=== PATIENT | female | born 1965 ===

== ENCOUNTER 2016-12-31 19:48 | Emergency (ER) | payer OTHER, MEDICARE ==
[2016-12-31 19:48] VITALS: BMI 35.0
[2016-12-31 20:06] VITALS: RESP 18
--- NOTE | 2016-12-31 20:56 | C.PDOC ---
History Of Present Illness The patient, a 51y/o female whose PMHx includes bilateral hip replacement, presents to the ED accompanied by family members for evaluation of right buttock , right ankle, and left hand pain which began after she sustained a fall around 2 hours prior to arrival. As per family member, patient was walking on the sidewalk when she stumbled on a road crack and fell down on her right side. Patient was then brought to the ED in a cab and with the assistance of her family members. Patient denies head injury, LOC, neck pain, back pain, upper/ lower extremity numbness/weakness. Time Seen by Provider: 12/31/16 20:20 Chief Complaint (Nursing): Lower Extremity Problem/Injury History Per: Patient, Family History/Exam Limitations: no limitations Onset/Duration Of Symptoms: Hrs (2) Current Symptoms Are (Timing): Still Present Additional History Per: Patient, Family - Hip Description Of Injury: Fell, Tripped - Ankle/Foot Description Of Injury: Fell Past Medical History Reviewed: Historical Data, Nursing Documentation, Vital Signs Vital Signs: Last Vital Signs Temp 98.3 F 12/31/16 22:22 Pulse 74 12/31/16 22:22 Resp 18 12/31/16 22:22 BP 110/73 12/31/16 22:22 Pulse Ox 95 12/31/16 22:22 - Medical History PMH: Anxiety, Arthritis, Bipolar Disorder, Depression, Deep Vein Thrombosis, HTN , Hypercholesterolemia, Hyperlipidemia, Chronic Kidney Disease, Schizophrenia Denies: Colonic Polyps, Osteoporosis Surgical History: Endoscopy Family History: States: Other (nc) - Social History Hx Tobacco Use: No Hx Alcohol Use: No Hx Substance Use: No - Immunization History Hx Tetanus Toxoid Vaccination: Yes (2013) Hx Influenza Vaccination: Yes Hx Pneumococcal Vaccination: Yes Review Of Systems Constitutional: Negative for: Fever, Chills Cardiovascular: Negative for: Chest Pain, Palpitations Respiratory: Negative for: Cough, Shortness of Breath Gastrointestinal: Negative for: Nausea, Vomiting, Abdominal Pain, Diarrhea Musculoskeletal: Negative for: Neck Pain, Back Pain Neurological: Negative for: Weakness, Numbness, Headache Physical Exam - Physical Exam Appears: Non-toxic, No Acute Distress Skin: Warm, Dry, Ecchymosis (to left palm with localized tenderness ), Other (+ superficial abrasion to left anterior knee ) Head: Atraumatic, Normacephalic Eye(s): bilateral: Normal Inspection, EOMI Oral Mucosa: Moist Neck: Normal ROM, No Midline Cervical Tenderness, Supple Chest: Symmetrical, No Deformity, No Tenderness Cardiovascular: Rhythm Regular, No Murmur Respiratory: Normal Breath Sounds, No Rales, No Rhonchi, No Wheezing Back: Normal Inspection, No Vertebral Tenderness, No Paraspinal Tenderness Extremity: Normal ROM (left thumb, b/l wrists, hips, ankles and knees), Tenderness (to right lateral malleolus r ankle, right buttock region. no ttp of lateral hips or pelvis.), Capillary Refill (less than 2 seconds), Swelling (to right lateral malleolus r ankle ), Other (left wrist nontender to palpation and nl rom) Pulses: Left Radial: Normal, Right Radial: Normal, Left Dorsalis Pedis: Normal, Right Dorsalis Pedis: Normal Neurological/Psych: Oriented x3, Normal Speech, Normal Cognition Gait: Unable To Assess ED Course And Treatment O2 Sat by Pulse Oximetry: 98 (on RA) Pulse Ox Interpretation: Normal Progress Note: Left knee XR, Right ankle XR, Left hand XR, and Hip XR ordered and reviewed. Patient received Morphine IV. Medical Decision Making Medical Decision Making: XR r hip ap pelvis- no acute fracture XR right ankle- no acute fracture XR left hand- no acute fracture XR left knee- no acute fracture KARY wrap RICE NSAIDs pcp follow up The patient initially requested intravenous pain medication. After receiving morphine she then requested dilaudid. According to the [place] [employer] she received chronic rx of narcotics and just filled 2 rx totalling 240 oxycodone just 4 days ago on 12/27/16, and she is requesting a rx for more percocet today. Pt made aware of narcotic policy. Disposition - Disposition Referrals: Refugio Macedo Jr., MD [Medical Doctor] - Disposition: HOME/ ROUTINE Disposition Time: 22:05 Condition: STABLE Additional Instructions: Please follow up with your doctor. Return to the ER for any worsening symptoms or for any other concerns. Prescriptions: Naproxen 500 mg PO Q12H PRN #10 ect PRN Reason: Pain, Moderate (4-7) Instructions: Ankle Sprain (ED), Contusion in Adults (ED) Forms: General Discharge Instructions - Clinical Impression Clinical Impression: Ankle sprain, Contusion of buttock, Knee contusion, Hand contusion, Drug- seeking behavior - Scribe Statement The provider has reviewed the documentation as recorded by the Scribe (Reyna Hernandez) Provider Attestation: All medical record entries made by the Scribe were at my direction and personally dictated by me. I have reviewed the chart and agree that the record accurately reflects my personal performance of the history, physical exam, medical decision making, and the department course for this patient. I have also personally directed, reviewed, and agree with the discharge instructions and disposition.
[2016-12-31] MEDS ORDERED: Morphine 4 MG/ML VIAL ONE (21:07)
[2016-12-31 22:22] VITALS: BP 110/73; PULSE 74; TEMP 98.3
--- NOTE | 2017-01-01 12:34 | RAD ---
PROCEDURE: Left Hand Radiographs. HISTORY: fall hand pain COMPARISON: None. FINDINGS: BONES: Normal. No fracture. 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 Remaining joint spaces and articular surfaces are preserved. SOFT TISSUES: Normal. OTHER FINDINGS: None. IMPRESSION: No acute fracture. Osteoarthritis of DIP 5
--- NOTE | 2017-01-01 12:35 | RAD ---
PROCEDURE: Right Hip Radiographs. HISTORY: fall pain COMPARISON: None. FINDINGS: BONES: No evidence of osseous fracture. Status post bilateral total hip replacement. No evidence of prosthesis loosening. JOINTS: No dislocation. SOFT TISSUES: Normal. OTHER FINDINGS: Intrauterine device noted. IMPRESSION: No acute fracture. Bilateral total hip replacement.
--- NOTE | 2017-01-01 12:35 | RAD ---
PROCEDURE: Left Knee Radiographs. HISTORY: Pain. COMPARISON: None. FINDINGS: BONES: Normal. No fracture. JOINTS: Normal. No osteoarthritis. JOINT EFFUSION: None. OTHER FINDINGS: None. IMPRESSION: Normal radiographs of the left knee.
--- NOTE | 2017-01-01 12:36 | RAD ---
PROCEDURE: Right Ankle Radiographs. HISTORY: fall ankle pain COMPARISON: None FINDINGS: BONES: Normal. No fracture. JOINTS: Normal. No osteoarthritis. Ankle mortise maintained. Talar dome intact SOFT TISSUES: Normal. OTHER FINDINGS: None. IMPRESSION: Normal right ankle radiographs.
[2017-01-01 14:20] VITALS: O2SAT 98
== END 2016-12-31 22:45 | disposition home or self-care (01) ==
LOC: C.ER 19:48
DX: S93.401A Sprain of unspecified ligament of right ankle, initial encounter (principal); S30.0XXA Contusion of lower back and pelvis, initial encounter; S80.02XA Contusion of left knee, initial encounter; S60.222A Contusion of left hand, initial encounter; W01.0XXA Fall on same level from slipping, tripping and stumbling without subsequent striking against object, initial encounter; Y93.01 Activity, walking, marching and hiking; Y92.480 Sidewalk as the place of occurrence of the external cause; Z76.5 Malingerer [conscious simulation]
CPT/HCPCS: 73130; 73502; 73562; 73610; 96374; 99284; J2270

== ENCOUNTER 2017-02-12 03:31 | Emergency (ER) | payer MEDICARE ==
[2017-02-12 03:31] VITALS: BMI 35.0
--- NOTE | 2017-02-12 05:28 | C.PDOC ---
History Of Present Illness 51 y/o female presents to ER with c/o of palpitations and SOB and lightheadedness started after argument with her daughter. Pt states her symptoms are similar to pas anxiety attacks. Pt is on meds for anxiety but unsure of name. Pt denies chest pain, weakness, no SOB at this time. Reports that symptoms have improved but still feels very anxious. Time Seen by Provider: 02/12/17 03:46 Chief Complaint (Nursing): Palpitations Past Medical History Vital Signs: Last Vital Signs Temp 98.4 F 02/12/17 03:40 Pulse 93 H 02/12/17 03:40 Resp 16 02/12/17 03:40 BP 124/69 02/12/17 03:40 Pulse Ox 96 02/12/17 05:35 - Medical History PMH: Anxiety, Arthritis, Bipolar Disorder, Depression, Deep Vein Thrombosis, HTN , Hypercholesterolemia, Hyperlipidemia, Chronic Kidney Disease, Schizophrenia Denies: Colonic Polyps, Osteoporosis Surgical History: Endoscopy Family History: States: Unknown Family Hx - Social History Hx Tobacco Use: No Hx Alcohol Use: Yes Hx Substance Use: No - Immunization History Hx Tetanus Toxoid Vaccination: No (2013) Hx Influenza Vaccination: No Hx Pneumococcal Vaccination: No ED Course And Treatment ECG Rhythm: Sinus Rhythm (normal at 89, no ST-T abnormalities) ECG Interpretation: No Acute Changes O2 Sat by Pulse Oximetry: 96 Pulse Ox Interpretation: Normal Progress Note: Pt symptoms have completely resolved after PO ativan, appears well, no longer anxious, VSS. Pt understands to return if chest pain, SOB, dizziness, diaphoresis occur Reevaluation Time: 05:35 Reassessment Condition: Improved Disposition Counseled Patient/Family Regarding: Diagnosis, Need For Followup, Rx Given - Disposition Disposition: HOME/ ROUTINE Disposition Time: 05:29 Condition: STABLE Additional Instructions: Continue current meds Follow up with your doctor Return to ER if worse Instructions: Anxiety (ED) - Clinical Impression Clinical Impression: Anxiety
[2017-02-12 05:59] VITALS: BP 118/77; PULSE 88; RESP 20; TEMP 98; O2SAT 99
--- NOTE | 2017-02-17 13:16 | CARD ---
APPROVED REPORT EKG Measurement Heart [id number] <Conclusion> Normal sinus rhythm Minimal voltage criteria for LVH, may be normal variant Possible Inferior infarct, age undetermined Abnormal ECG
== END 2017-02-12 05:58 | disposition home or self-care (01) ==
LOC: C.ER 03:31
DX: F41.9 Anxiety disorder, unspecified (principal)

== ENCOUNTER 2017-11-16 11:16 | Emergency (ER) | payer MEDICAID, MEDICARE ==
[2017-11-16 11:16] VITALS: BMI 35.0
[2017-11-16 12:54] LABS: BASO # 0.1 K/uL (0.0-0.2); BASO % 0.5 % (0.0-2.0); EOS # 0.3 K/uL (0.0-0.7); EOS % 2.3 % (0.0-4.0); LYMPH # 3.3 K/uL (1.0-4.3); LYMPH % 22.1 % (20.0-40.0); MEAN CORPUSCULAR HEMOGLOBIN 32.3 pg (27.0-31.0); MEAN CORPUSCULAR HGB CONC 34.5 g/dL (33.0-37.0); MEAN PLATELET VOLUME 7.2 fL (7.2-11.7); MONO # 0.6 K/uL (0.0-0.8); NEUT # 10.5 K/uL (1.8-7.0); NEUT % 71.1 % (50.0-75.0); RBC 3.78 Mil/uL (3.80-5.20); RED CELL DISTRIBUTION WIDTH 15.4 % (11.5-14.5); WHITE BLOOD COUNT 14.8 K/uL (4.8-10.8)
[2017-11-16 12:57] LABS: HEMOGLOBIN 12.2 g/dL (11.0-16.0); MEAN CELL VOLUME 93.6 fL (81.0-99.0)
[2017-11-16 13:06] LABS: ALB/GLOB RATIO 1.2 (1.0-2.1); ALBUMIN 4.2 g/dL (3.5-5.0); ALT/SGPT 25 U/L (9-52); AST/SGOT 25 U/L (14-36); BLOOD UREA NITROGEN 22 mg/dL (7-17); CALCIUM 9.4 mg/dl (8.6-10.4); GFR AFRICAN-AMERICAN > 60; GFR NON-AFRICAN AMERICAN 58
--- NOTE | 2017-11-16 14:04 | RAD ---
HISTORY: chest pain COMPARISON: Chest x-ray performed 08/02/13 TECHNIQUE: Chest, one view. FINDINGS: Examination limited by habitus. LUNGS: No focal consolidation. Re-identified 4 mm right upper lobe nodular density. Please note that chest x-ray has limited sensitivity for the detection of pulmonary masses. PLEURA: No significant pleural effusion identified. No definite pneumothorax . CARDIOVASCULAR: For size appears borderline enlarged. OSSEOUS STRUCTURES: No acute osseous abnormality identified. VISUALIZED UPPER ABDOMEN: Unremarkable. OTHER FINDINGS: None. IMPRESSION: Borderline cardiomegaly. . 4 mm right upper lobe nodular density re-identified consistent with calcified granuloma.
[2017-11-16 14:16] VITALS: BP 112/69; PULSE 64; RESP 18; TEMP 97.4; O2SAT 97
--- NOTE | 2017-11-16 17:33 | C.PDOC ---
History Of Present Illness 52 year old female presents to the ED for evaluation after experiencing palpitations which lasted from around 1.5-2 minutes earlier today. Patient also reports a nosebleed which lasted 5 minutes, in which she spit some blood out of her mouth. She denies fever, chills, chest pain, cough, and shortness of breath. Chief Complaint (Nursing): Palpitations History Per: Patient History/Exam Limitations: no limitations Onset/Duration Of Symptoms: Mins Current Symptoms Are (Timing): Better Additional History Per: Patient Past Medical History Reviewed: Historical Data, Nursing Documentation, Vital Signs Vital Signs: Last Vital Signs Temp 97.4 F L 11/16/17 14:05 Pulse 64 11/16/17 14:05 Resp 18 11/16/17 14:05 BP 112/69 11/16/17 14:05 Pulse Ox 97 11/16/17 17:36 - Medical History PMH: Anxiety, Arthritis, Bipolar Disorder, Depression, Deep Vein Thrombosis, HTN , Hypercholesterolemia, Hyperlipidemia, Schizophrenia Denies: Colonic Polyps, Diabetes, Hepatitis, HIV, Osteoporosis, Chronic Kidney Disease, Seizures, Sexually Transmitted Disease Surgical History: Endoscopy - [facility] Procedures GROUP PSYCHOTHERAPY (10/26/17) INDIVIDUAL PSYCHOTHERAPY, BEHAVIORAL (10/26/17) INDIVIDUAL PSYCHOTHERAPY, COGNITIVE-BEHAVIORAL (09/02/17) Family History: States: Unknown Family Hx - Social History Hx Tobacco Use: No Hx Alcohol Use: Yes Hx Substance Use: No - Immunization History Hx Tetanus Toxoid Vaccination: Yes (2013) Hx Influenza Vaccination: Yes Hx Pneumococcal Vaccination: Yes Review Of Systems Constitutional: Negative for: Fever, Chills ENT: Positive for: Nose Discharge Cardiovascular: Positive for: Palpitations. Negative for: Chest Pain Respiratory: Negative for: Shortness of Breath Physical Exam - Physical Exam Appears: Non-toxic, No Acute Distress Skin: Normal Color, Warm, Dry Head: Atraumatic, Normacephalic Eye(s): bilateral: Normal Inspection Ear(s): Bilateral: Normal Nose: Other (dry blood noted in left nare. no active bleeding ) Neck: Supple Chest: Symmetrical, No Deformity, No Tenderness Cardiovascular: Rhythm Regular, No Murmur Respiratory: Normal Breath Sounds, No Rales, No Rhonchi, No Wheezing Extremity: Normal ROM, Capillary Refill (less than 2 seconds ) Neurological/Psych: Oriented x3, Normal Speech, Normal Cognition Gait: Steady ED Course And Treatment - Laboratory Results Result Diagrams: 11/16/17 12:45 11/16/17 12:45 ECG: Interpreted By Me, Viewed By Me ECG Rhythm: Sinus Rhythm Rate From EC O2 Sat by Pulse Oximetry: 97 (on RA) Pulse Ox Interpretation: Normal - Other Rad CXR X-Ray: Interpreted by Me, Viewed By Me, Read By Radiologist Interpretation: HISTORY: chest pain. COMPARISON: Chest x-ray performed . TECHNIQUE: Chest, one view. FINDINGS: Examination limited by habitus. LUNGS: No focal consolidation. Re-identified 4 mm right upper lobe nodular density. Please note that chest x-ray has limited sensitivity for the detection of pulmonary masses. PLEURA: No significant pleural effusion identified. No definite pneumothorax . CARDIOVASCULAR: For size appears borderline enlarged. OSSEOUS STRUCTURES: No acute osseous abnormality identified. VISUALIZED UPPER ABDOMEN: Unremarkable. OTHER FINDINGS: None. IMPRESSION: Borderline cardiomegaly. . 4 mm right upper lobe nodular density re-identified consistent with calcified granuloma. Medical Decision Making Medical Decision Making: Progress: Bloodwork, CXR and EKG ordered and reviewed. Disposition - Disposition Referrals: [employer] Sherly Martinez, [Non-Staff] - Disposition: HOME/ ROUTINE Disposition Time: 13:40 Condition: GOOD Additional Instructions: Thank you for letting us take care of you today. The emergency medical care you received today was directed at your acute symptoms. If you were prescribed any medication, please fill it and take as directed. It may take several days for your symptoms to resolve. Return to the Emergency Department if your symptoms worsen, do not improve, or if you have any other problems. Please contact your doctor or call one of the physicians/clinics you have been referred to that are listed on the Patient Visit Information form that is included in your discharge packet. Bring any paperwork you were given at discharge with you along with any medications you are taking to your follow up visit. Our treatment cannot replace ongoing medical care by a primary care provider (PCP) outside of the emergency department. Thank you for allowing the [facility] team to be part of your care today. Please follow up with your doctor in 2-3 days for re-evaluation and further management. Instructions: Palpitations (ED) Forms: [employer] (Danish) - Clinical Impression Clinical Impression: Palpitations - Scribe Statement The provider has reviewed the documentation as recorded by the Scribe (Reyna Hernandez) Provider Attestation: All medical record entries made by the Scribe were at my direction and personally dictated by me. I have reviewed the chart and agree that the record accurately reflects my personal performance of the history, physical exam, medical decision making, and the department course for this patient. I have also personally directed, reviewed, and agree with the discharge instructions and disposition.
--- NOTE | 2017-11-18 15:19 | CARD ---
APPROVED REPORT EKG Measurement Heart [id number] <Conclusion> Normal sinus rhythm Normal ECG
== END 2017-11-16 14:05 | disposition home or self-care (01) ==
LOC: C.ER 11:16
DX: R00.2 Palpitations (principal); E78.00 Pure hypercholesterolemia, unspecified; I10 Essential (primary) hypertension; F20.9 Schizophrenia, unspecified; Z86.718 Personal history of other venous thrombosis and embolism

== ENCOUNTER 2017-12-20 02:32 | Emergency (ER) | payer MEDICARE ==
[2017-12-20 02:32] VITALS: BMI 35.0
[2017-12-20 02:48] VITALS: RESP 20
[2017-12-20] MEDS ORDERED: Lidocaine 2% Inj (20ml) INFIL ONE (03:19)
--- NOTE | 2017-12-20 03:26 | C.PDOC ---
History Of Present Illness 52 year old female presents to the ED for evaluation of a headache after she slipped and fell in the shower. Patient states she took Tylenol/codeine for her shoulder pain and then felt light headed while in the shower, slipped and hit the back of head against the bathtub. Patient reports questionable LOC; currently c/o headache and a laceration the back of her head. Patient denies visual changes, nausea, vomit, back pain, weakness, numbness. Time Seen by Provider: 12/20/17 03:04 Chief Complaint (Nursing): Abnormal Skin Integrity History Per: Patient History/Exam Limitations: no limitations Onset/Duration Of Symptoms: Hrs Current Symptoms Are (Timing): Still Present Quality: "Pain" Preceeding Symptoms: None Recent travel outside of the [place]: No Additional History Per: Patient Past Medical History Reviewed: Historical Data, Nursing Documentation, Vital Signs Vital Signs: Last Vital Signs Temp 98.5 F 12/20/17 05:15 Pulse 84 12/20/17 05:15 Resp 20 12/20/17 05:15 BP 110/79 12/20/17 05:15 Pulse Ox 95 12/20/17 06:54 - Medical History PMH: Anxiety, Arthritis, Bipolar Disorder, Depression, Deep Vein Thrombosis, HTN , Hypercholesterolemia, Hyperlipidemia, Schizophrenia Denies: Colonic Polyps, Diabetes, Hepatitis, HIV, Osteoporosis, Chronic Kidney Disease, Seizures, Sexually Transmitted Disease Surgical History: Endoscopy - [facility] Procedures GROUP PSYCHOTHERAPY (10/26/17) INDIVIDUAL PSYCHOTHERAPY, BEHAVIORAL (10/26/17) INDIVIDUAL PSYCHOTHERAPY, COGNITIVE-BEHAVIORAL (09/02/17) Family History: States: Unknown Family Hx - Social History Hx Tobacco Use: No Hx Alcohol Use: Yes Hx Substance Use: No - Immunization History Hx Tetanus Toxoid Vaccination: Yes (2013) Hx Influenza Vaccination: Yes Hx Pneumococcal Vaccination: Yes Review Of Systems Constitutional: Negative for: Fever, Chills Eyes: Negative for: Vision Change ENT: Negative for: Ear Discharge, Nose Discharge Gastrointestinal: Negative for: Nausea, Vomiting Musculoskeletal: Negative for: Neck Pain Skin: Positive for: Other (laceration scalp). Negative for: Rash Neurological: Positive for: Headache, Dizziness. Negative for: Weakness, Numbness Physical Exam - Physical Exam Appears: Non-toxic, No Acute Distress Skin: Normal Color, Warm, Dry Head: Normacephalic, Laceration (3 cm to right sided occipital ), Other (No meyers signs) Eye(s): bilateral: Normal Inspection, PERRL, EOMI, Other (no racoon eyes) Ear(s): Bilateral: Normal, Other (no hemotympanum) Nose: No Discharge, No Epistaxis Oral Mucosa: Moist Neck: Normal ROM, No Midline Cervical Tenderness, Paracervical Tenderness (mild) , Supple Chest: No Deformity, No Tenderness Cardiovascular: Rhythm Regular, No Murmur Respiratory: No Decreased Breath Sounds Gastrointestinal/Abdominal: Soft, No Tenderness Extremity: Normal ROM, No Tenderness, No Swelling Neurological/Psych: Oriented x3, Normal Speech, Normal Cognition, Normal Motor, Normal Sensation Gait: Steady ED Course And Treatment O2 Sat by Pulse Oximetry: 95 (On RA) Pulse Ox Interpretation: Normal - CT Scan/US CT head Other Rad Studies (CT/US): Read By Radiologist, Radiology Report Reviewed CT/US Interpretation: FINDINGS: Brain: Mild atrophy. No intracranial hemorrhage. No mass. Few scattered foci of decreased. attenuation within periventricular/subcortical white matter. No edema. Ventricles: No hydrocephalus. Bones/joints: No acute fracture. Soft tissues: Mild right occipital parietal soft tissue swelling. Sinuses: No acute sinusitis. Mastoid air cells: No mastoid effusion. Orbits: Unremarkable as visualized. IMPRESSION : 1. No intracranial hemorrhage. 2. Nonspecific white matter changes. 3. Incidental/non-acute findings are described above. CT C-Spine Other Rad Studies (CT/US): Read By Radiologist, Radiology Report Reviewed CT/US Interpretation: FINDINGS: Vertebrae: No acute fracture. Chronic ununited fracture T1 spinous process. Straightening of. cervical spine. Discs/spinal canal/neural foramina: No significant spinal canal stenosis. Soft tissues: Unremarkable. Sinuses: Minimal mucosal thickening of maxillary sinuses. Lung apices: RUL calcified granuloma. IMPRESSION: 1. No acute fracture. 2. Incidental/non-acute findings are described above Laceration - Laceration Repair No standard instances Wound Length (In cm): 3 Description Of Wound: Linear Wound Cleansed With: Sterile Saline Anesthesia: Lidocaine 2% Wound Examination: Irrigated With Saline, No FB With Wound Exploration, No Tendon Injury With Wound Exploration Wound Closure: [place] (#7) Wound Complexity: Simple Medical Decision Making Medical Decision Making: Plan: * CT head * CT Cervical Spine ct head and cervical spine neg for acute pathology. scalp laceraiton stapled. pt tolerated procedure well. f/u pmd. Disposition Counseled Patient/Family Regarding: Diagnosis, Need For Followup - Disposition Referrals: Refugio Macedo Jr., MD [Medical Doctor] - Disposition: HOME/ ROUTINE Disposition Time: 04:59 Condition: IMPROVED Additional Instructions: Please do not soak head in water; a brief rinse ok for the next few days. Follow up with Dr Macedo. Staple removal in 10-14 days. Return to ER for any severe headache, vomiting, dizziness, nausea, seizure or any unusual behavior. . Instructions: Laceration Repair With [place] (DC), Head Injury Observation (DC) Forms: [employer] (Filipino), General Discharge Instructions - Clinical Impression Clinical Impression: Fall in (into) shower or empty bathtub, initial encounter, Head injury, acute, Occipital scalp laceration - PA / RECRUITING ASSOCIATE / Resident Statement MD/DO has reviewed & agrees with the documentation as recorded. - Scribe Statement The provider has reviewed the documentation as recorded by the Scribe Lonnie Man All medical record entries made by the Scribe were at my direction and personally dictated by me. I have reviewed the chart and agree that the record accurately reflects my personal performance of the history, physical exam, medical decision making, and the department course for this patient. I have also personally directed, reviewed, and agree with the discharge instructions and disposition.
[2017-12-20] MEDS ORDERED: Lidocaine 2% Inj (20ml) ONE (03:30)
--- NOTE | 2017-12-20 04:02 | CT ---
EXAM: CT Head Without Intravenous Contrast CLINICAL HISTORY: 52 years old, female; Injury or trauma; Fall; Initial encounter; Blunt trauma (contusions or hematomas); With loss of consciousness; Not specified; Additional info: Slipped hit head, ? loc TECHNIQUE: Axial computed tomography images of the head/brain without intravenous contrast. All CT scans at this facility use one or more dose reduction techniques, viz.: automated exposure control; ma/kV adjustment per patient size (including targeted exams where dose is matched to indication; i.e. head); or iterative reconstruction technique. Coronal and sagittal reformatted images were created and reviewed. COMPARISON: No relevant prior studies available. FINDINGS: Brain: Mild atrophy. No intracranial hemorrhage. No mass. Few scattered foci of decreased attenuation within periventricular/subcortical white matter. No edema. Ventricles: No hydrocephalus. Bones/joints: No acute fracture. Soft tissues: Mild right occipital parietal soft tissue swelling. Sinuses: No acute sinusitis. Mastoid air cells: No mastoid effusion. Orbits: Unremarkable as visualized. IMPRESSION: 1. No intracranial hemorrhage. 2. Nonspecific white matter changes. 3. Incidental/non-acute findings are described above.
--- NOTE | 2017-12-20 04:07 | CT ---
EXAM: CT Cervical Spine Without Intravenous Contrast CLINICAL HISTORY: 52 years old, female; Injury or trauma; Fall; Initial encounter; Blunt trauma; Additional info: Midline pain S/P fall TECHNIQUE: Axial computed tomography images of the cervical spine without intravenous contrast. All CT scans at this facility use one or more dose reduction techniques, viz.: automated exposure control; ma/kV adjustment per patient size (including targeted exams where dose is matched to indication; i.e. head); or iterative reconstruction technique. Coronal and sagittal reformatted images were created and reviewed. COMPARISON: No relevant prior studies available. FINDINGS: Vertebrae: No acute fracture. Chronic ununited fracture T1 spinous process. Straightening of cervical spine. Discs/spinal canal/neural foramina: No significant spinal canal stenosis. Soft tissues: Unremarkable. Sinuses: Minimal mucosal thickening of maxillary sinuses. Lung apices: RUL calcified granuloma. IMPRESSION: 1. No acute fracture. 2. Incidental/non-acute findings are described above.
[2017-12-20 05:17] VITALS: BP 110/79; PULSE 84; TEMP 98.5
[2017-12-20 06:52] VITALS: O2SAT 95
== END 2017-12-20 05:16 | disposition home or self-care (01) ==
LOC: C.ER 02:32
DX: S01.01XA Laceration without foreign body of scalp, initial encounter (principal); W18.2XXA Fall in (into) shower or empty bathtub, initial encounter; Y93.E1 Activity, personal bathing and showering; E78.00 Pure hypercholesterolemia, unspecified; F20.9 Schizophrenia, unspecified; I10 Essential (primary) hypertension
CPT/HCPCS: 12002; 70450; 72125; 96372; 99285; J1885

== ENCOUNTER 2018-02-20 17:49 | Emergency (ER) | payer MEDICARE ==
[2018-02-20 17:49] VITALS: BMI 35.0
[2018-02-20 17:59] VITALS: BP 135/85; PULSE 105; TEMP 100; O2SAT 99
--- NOTE | 2018-02-20 18:36 | C.PDOC ---
Time Seen by Provider: 02/20/18 17:58 Chief Complaint (Nursing): Upper Extremity Problem/Injury Past Medical History Vital Signs: Last Vital Signs Temp 100.0 F H 02/20/18 17:57 Pulse 105 H 02/20/18 17:57 Resp 20 02/20/18 17:57 BP 135/85 02/20/18 17:57 Pulse Ox 99 02/20/18 17:57 - Medical History PMH: Anxiety, Arthritis, Bipolar Disorder, Depression, Deep Vein Thrombosis, HTN , Hypercholesterolemia, Hyperlipidemia, Schizophrenia Denies: Colonic Polyps, Diabetes, Hepatitis, HIV, Osteoporosis, Chronic Kidney Disease, Seizures, Sexually Transmitted Disease Surgical History: Endoscopy - [facility] Procedures GROUP PSYCHOTHERAPY (10/26/17) INDIVIDUAL PSYCHOTHERAPY, BEHAVIORAL (10/26/17) INDIVIDUAL PSYCHOTHERAPY, COGNITIVE-BEHAVIORAL (09/02/17) Family History: States: Unknown Family Hx - Social History Hx Tobacco Use: No Hx Alcohol Use: Yes Hx Substance Use: No - Immunization History Hx Tetanus Toxoid Vaccination: Yes (2013) Hx Influenza Vaccination: Yes Hx Pneumococcal Vaccination: Yes ED Course And Treatment O2 Sat by Pulse Oximetry: 99 Disposition Counseled Patient/Family Regarding: Studies Performed, Diagnosis, Need For Followup, Rx Given - Disposition Disposition: HOME/ ROUTINE Disposition Time: 18:35 Condition: STABLE Prescriptions: Ibuprofen [Motrin] 600 mg PO TID #15 tab Instructions: Contusion (DC) Forms: [employer] [facility] (N[place]ien), General Discharge Instructions - Clinical Impression Clinical Impression: Contusion
--- NOTE | 2018-02-20 18:40 | C.PDOC ---
History Of Present Illness 52yo female, presents to ED for evaluation of left upper arm pain. Patient states she was in a restaurant and while the home improvement contractor was attempting to close the blinds, the blinds landed on her arm. She currently reports pain with associated swelling and bruising. No numbness, weakness, and she has no other medical complaints. Time Seen by Provider: 02/20/18 17:58 Chief Complaint (Nursing): Upper Extremity Problem/Injury History Per: Patient History/Exam Limitations: no limitations Onset/Duration Of Symptoms: Other (prior to arrival) Exacerbating Factor(s): Strenuous Use Of Affected Area Additional History Per: Patient Past Medical History Reviewed: Historical Data, Nursing Documentation, Vital Signs Vital Signs: Last Vital Signs Temp 100.0 F H 02/20/18 17:57 Pulse 105 H 02/20/18 17:57 Resp 18 02/20/18 18:43 BP 135/85 02/20/18 17:57 Pulse Ox 99 02/20/18 18:50 - Medical History PMH: Anxiety, Arthritis, Bipolar Disorder, Depression, Deep Vein Thrombosis, HTN , Hypercholesterolemia, Hyperlipidemia, Schizophrenia Denies: Colonic Polyps, Diabetes, Hepatitis, HIV, Osteoporosis, Chronic Kidney Disease, Seizures, Sexually Transmitted Disease Surgical History: Endoscopy - [facility] Procedures GROUP PSYCHOTHERAPY (10/26/17) INDIVIDUAL PSYCHOTHERAPY, BEHAVIORAL (10/26/17) INDIVIDUAL PSYCHOTHERAPY, COGNITIVE-BEHAVIORAL (09/02/17) Family History: States: Unknown Family Hx - Social History Hx Tobacco Use: No Hx Alcohol Use: Yes Hx Substance Use: No - Immunization History Hx Tetanus Toxoid Vaccination: Yes (2013) Hx Influenza Vaccination: Yes Hx Pneumococcal Vaccination: Yes Review Of Systems Except As Marked, All Systems Reviewed And Found Negative. Musculoskeletal: Positive for: Arm Pain (left) Neurological: Negative for: Weakness, Numbness Physical Exam - Physical Exam Appears: Non-toxic, No Acute Distress Skin: Warm, Dry Neck: Normal ROM, No Midline Cervical Tenderness, No Paracervical Tenderness, Supple Chest: Symmetrical Cardiovascular: Rhythm Regular Respiratory: Normal Breath Sounds Back: Normal Inspection, No Vertebral Tenderness, No Paraspinal Tenderness Extremity: Normal ROM, Tenderness (tenderness to right upper arm, with associated bruising to mid arm on the lateral aspect.) Neurological/Psych: Oriented x3 ED Course And Treatment O2 Sat by Pulse Oximetry: 99 (RA) Pulse Ox Interpretation: Normal Medical Decision Making Medical Decision Making: Impression: Left arm pain Plan: -- Tylenol 975 mg PO -- MOtrin 600 mg PO -- XR Left humerus XR reviewed and shows no fracutres or dislocations. Patient stable for discharge home. Disposition - Disposition Disposition: HOME/ ROUTINE Disposition Time: 18:35 Condition: STABLE Prescriptions: Ibuprofen [Motrin] 600 mg PO TID #15 tab Instructions: Contusion (DC) Forms: General Discharge Instructions, [facility] (Pashto) - Clinical Impression Clinical Impression: Contusion - Scribe Statement The provider has reviewed the documentation as recorded by the Scribe (Elvie Burnham) Provider Attestation: All medical record entries made by the Scribe were at my direction and personally dictated by me. I have reviewed the chart and agree that the record accurately reflects my personal performance of the history, physical exam, medical decision making, and the department course for this patient. I have also personally directed, reviewed, and agree with the discharge instructions and disposition.
[2018-02-20 18:44] VITALS: RESP 18
--- NOTE | 2018-02-21 08:39 | RAD ---
PROCEDURE: Radiographs of the left humerus. HISTORY: trauma COMPARISON: None. FINDINGS: BONES: No acute fracture. SOFT TISSUES: Calcification in the subacromial space. OTHER FINDINGS: None. IMPRESSION: No demonstrated fracture or dislocation. Supraspinatus calcific tendonitis.
== END 2018-02-20 18:44 | disposition home or self-care (01) ==
LOC: C.ER 17:49
DX: S40.021A Contusion of right upper arm, initial encounter (principal); W22.8XXA Striking against or struck by other objects, initial encounter; Y92.511 Restaurant or cafe as the place of occurrence of the external cause

== ENCOUNTER 2018-03-27 03:10 | Emergency (ER) | payer SELFPAY ==
[2018-03-27 03:11] VITALS: BMI 35.0
== END 2018-03-27 03:19 | disposition left against medical advice (07) ==
LOC: C.ER 03:10
DX: Z02.89 Encounter for other administrative examinations (principal); Z00.8 Encounter for other general examination